=== PATIENT | male | born 1955 | race Asian ===

== ENCOUNTER 2019-02-20 07:00 | Emergency (ER) | payer OTHER ==
[~2019-02-20] VITALS: Ht 167.6 cm; Wt 72.3 kg
[2019-02-20 07:11] VITALS: BP 160/76
--- NOTE | 2019-02-20 07:29 | NUR ---
Note undone in EDM - 02/20/19 at 0749 by [facility] BIB SELF. AAO X4 C/O C/O RIGHT EYE PAIN WITH REDNESS X 4 DAYS. PT'S RIGHT EYE TEARY. PT WENT TO URGENT CARE YESTERDAY AND WAS PRESCRIBED GENERIC NAPHCON - A EYE ALLERGY DROPS. PT STATES NO RELIEF FROM EYE DROPS. PT DENIES BLURRED VISION, FEVER. PT HAS STEADY GAIT. VA: R 20/25, L 20/13, BOTH EYE 20/13. ER TO EVALUATE PT.
--- NOTE | 2019-02-20 07:29 | NUR ---
BIB SELF. AAO X4 C/O C/O RIGHT EYE PAIN WITH REDNESS X 4 DAYS. PT'S RIGHT EYE TEARY. PT WENT TO URGENT CARE YESTERDAY AND WAS PRESCRIBED GENERIC NAPHCON - A EYE ALLERGY DROPS. PT STATES NO RELIEF FROM EYE DROPS. PT DENIES TRAUMA/INJURY TO SITE, BLURRED VISION, FEVER. PT HAS STEADY GAIT. VA: R 20/25, L 20/13, BOTH EYE 20/13. ER TO EVALUATE PT.
--- NOTE | 2019-02-20 07:29 | NUR ---
PATIENT AMBULATED TO BED 9.
--- NOTE | 2019-02-20 07:31 | NUR ---
Dr. Sharma evaluating patient at bedside.
[2019-02-20 07:56] VITALS: BP 154/72
--- NOTE | 2019-02-20 07:56 | NUR ---
Patient discharged with v/s stable. Written and verbal after care instructions given and explained. Patient alert, oriented and verbalized understanding of instructions. Ambulatory with steady gait. All questions addressed prior to discharge. ID band removed. Patient advised to follow up with PMD. Rx of MOTRIN 800 MG, PREDNISONE, ERYTHROMYCINE 0.5% OPTHALMIC OINTMENT given. Patient educated on indication of medication including possible reaction and side effects. Opportunity to ask questions provided and answered.
== END 2019-02-20 07:56 | disposition home or self-care (01) ==
LOC: MED 07:00
DX: H10.9 Unspecified conjunctivitis (principal)
CPT/HCPCS: 99283